=== PATIENT | female | born 1950 | race Caucasian/White ===

== ENCOUNTER 2016-08-05 13:29 | Emergency (ER) | payer BC, OTHER ==
[~2016-08-05] VITALS: Ht 170.2 cm; Wt 87.1 kg
[~2016-08-05 13:29] MED LIST: ALLERGY D-12 T1 EACH PO; AMITRIPTYLINE H10 M1 PO; CENESTIN0.9 MG PO; GAVISCON500 MG PO; LORTAB 5 MG/5001 TA1 PO; NASONEX17 GM NS; NORCO 7.5-3251 EACH PO; PREVACID15 MG PO; PRILOSEC 20 MG20 MG PO; PRILOSEC PO; PRILOSEC40 MG PO; PROAIR HFA8.5 GM IH
[2016-08-05 16:36] LABS: ABSOLUTE NEUTROPHILS 4.8 thou/uL (1.4-8.2); BASOPHILS 0.6 % (0.0-2.0); EOSINOPHILS 1.4 % (0.0-3.0); HEMOGLOBIN 14.4 gm/dL (12.0-15.0); LYMPHOCYTES 33.7 % (24.0-44.0); MCH 32.4 pg (26.0-34.0); MCHC 34.3 g/dL (28.0-37.0); MCV 94.3 fL (80.0-100.0); MONOCYTES 5.8 % (1.0-8.0); PLATELET COUNT 259 thou/uL (150-400); POLYS 58.5 % (36.0-66.0); RBC 4.46 mil/uL (4.20-5.00); RDW 12.9 % (10.5-14.5); WBC 8.3 thou/uL (4.0-11.0)
[2016-08-05 16:37] LABS: MANUAL DIFF NO
[2016-08-05 16:39] LABS: CALCIUM 8.7 mg/dL (8.5-10.1); CREATININE 0.9 mg/dL (0.6-1.0)
[2016-08-05] MEDS ORDERED: NORCO 5-325 TA1 EACH PO (18:25)
[2016-08-05 18:49] VITALS: BP 129/75
== END 2016-08-05 18:50 | disposition home or self-care (01) ==
LOC: ER 13:29
PROVIDERS: Emergency Medicine
DX: S16.1XXA Strain of muscle, fascia and tendon at neck level, initial encounter (principal); S14.3XXA Injury of brachial plexus, initial encounter; M54.6 Pain in thoracic spine; Z90.710 Acquired absence of both cervix and uterus; Z98.890 Other specified postprocedural states; Z91.030 Bee allergy status; Z91.048 Other nonmedicinal substance allergy status; Z88.1 Allergy status to other antibiotic agents; V89.2XXA Person injured in unspecified motor-vehicle accident, traffic, initial encounter; Y93.89 Activity, other specified; Y92.89 Other specified places as the place of occurrence of the external cause; Y99.8 Other external cause status

== ENCOUNTER → 2017-12-01 | Outpatient (CLI) | payer OTHER, BC ==
[~2017-12-01] MED LIST changes: +NORCO 5-325 TA1 EACH PO
== END ==
LOC: RAD 03:58
DX: Z12.31 Encounter for screening mammogram for malignant neoplasm of breast (principal)

== ENCOUNTER → 2018-12-12 | Outpatient (CLI) | payer OTHER, BC | LOC: RAD 09:19 | DX: Z12.31 Encounter for screening mammogram for malignant neoplasm of breast (principal) ==